=== PATIENT | male | born 1985 | race Caucasian/White ===

== ENCOUNTER 2020-03-17 11:49 | Day surgery (SDC) | payer OTHER ==
[2020-03-17] MEDS ORDERED: ceFAZolin 2 GM/50 ML 2 GM/50 ML BAG IV ONE (12:11)
[2020-03-17] MEDS ORDERED: LACTATED RINGERS 1,000 ML IV ONE ×2 (12:15→14:39)
[2020-03-17] MEDS ORDERED: EPINEPHrine 1 MG/ML AMP ONE (12:40)
[2020-03-17] MEDS ORDERED: BUPIVACAINE 0.25% PF 30 ML VIAL ONE (12:41)
[2020-03-17] MEDS ORDERED: LIDOCAINE-MPF 2% 5 ML VIAL ONE (12:42)
[2020-03-17] MEDS ORDERED: MIDAZOLAM 2 MG/2 ML VIAL ONE (12:42)
[2020-03-17] MEDS ORDERED: PROPOFOL 200 MG/20 ML VIAL IVP ONE (12:42)
[2020-03-17] MEDS ORDERED: BUPIVACAINE 0.5%-EPI 1:200000 PF 30 ML VIAL ONE (12:45)
[2020-03-17] MEDS ORDERED: fentaNYL 100 MCG/2 ML VIAL ONE ×3 (13:27→14:35)
[2020-03-17] MEDS ORDERED: ONDANSETRON 4 MG/2 ML VIAL ONE (13:27)
[2020-03-17] MEDS ORDERED: DEXAMETHASONE 4 MG/ML VIAL ONE (13:27)
[2020-03-17] MEDS ORDERED: BUPIVACAINE 0.25% PF 30 ML VIAL SUBQ ONE (13:42)
[2020-03-17] MEDS ORDERED: EPINEPHrine 1 MG/ML AMP IR ONE (13:43)
[2020-03-17] MEDS ORDERED: oxyCODONE 5 MG TABLET PO PRN (14:45)
[2020-03-17] MEDS ORDERED: ONDANSETRON 4 MG/2 ML VIAL IVP PRN ×2 (14:45→14:48)
[2020-03-17] MEDS ORDERED: METOCLOPRAMIDE 10 MG/2 ML VIAL IVP PRN (14:48)
[2020-03-17] MEDS ORDERED: NALOXONE 0.4 MG/ML VIAL IVP PRN (14:48)
[2020-03-17] MEDS ORDERED: MORPHINE 2 MG/ML CARPUJECT IVP PRN (14:48)
[2020-03-17] MEDS ORDERED: HYDROmorphone 0.5 MG/0.5 ML SYRINGE IVP PRN (14:48)
[2020-03-17] MEDS ORDERED: ATROPINE ABBOJECT 1 MG/10 ML SYRINGE IVP PRN (14:48)
[2020-03-17] MEDS ORDERED: fentaNYL 100 MCG/2 ML VIAL IVP PRN (14:48)
[2020-03-17] MEDS ORDERED: ePHEDrine 50 MG/ML VIAL IVP PRN (14:48)
--- NOTE | 2020-03-17 14:51 | OPERATIVE REPORT ---
Operative Report - Other Other Information/Narrative: Date of Surgery: 17 March 2020 Pre-Op Diagnosis: Right knee lateral meniscus tear. Partial ACL tear. Procedure: Right knee arthroscopic lateral meniscus debridement and diagnostic arthroscopy Postop Diagnosis: Same Primary Surgeon: Hakeem Rm Secondary Surgeon: None Complications: None EBL: 5 cc Indication For Surgery: 35-year-old male sustained an injury to his knee while he was wrestling with a friend many months ago. He was scheduled to start p hysical therapy but did not do so because of the pandemic. He spent about 6 months not using the leg much. I got him into rehab a few months ago and his knee started to feel much better. 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 We discussed surgical management of the meniscus as well as a possible ACL reconstruction. He is not a dynamic athlete but he does feel some giving way and pain in day-to-day activities. We discussed that this painful give way could be secondary to his meniscus or his ACL. I suggested that we perform the diagnostic arthroscopy and assess whether a portion of the ACL still adequately attached to the lateral wall and if it was then we would forego the ACL reconstruction at this time and only perform the meniscus debridement. This would give him time to rehab the knee completely and fully tested to see if he needs an ACL reconstruction. The risks, benefits, and alternatives were disc ussed. Risks include pain, bleeding, infection, damage to nearby structures and cartilage, lack of symptom relief, need for further surgery, DVT, PE, stroke, and . Written consent was obtained. Examination Under Anesthesia: ROM equal to the contralateral side. Stable dial at 30 & 90 degrees. Stable to varus and valgus stressing at 0 & 30 degrees. 2A Jose, same as the other side. Mild glide on Pivot shift. No mechanical sensation Arthroscopic Findings: Loose bodies -none Synovium -normal Patella cartilage -normal Trochlear cartilage -normal Medial femoral condyle cartilage -normal Medial tibial plateau cartilage -normal Medial meniscus -normal Anterior cruciate ligament -partial tearing of the ligament off the lateral wall the femur but some fibers remained intact. The torn fibers scarred to the PCL. On arthroscopic Jose the ACL tightened and stopped translation. Posterior cruciate ligament -normal Lateral femoral condyle cartilage -normal Lateral tibial plateau cartilage -normal Lateral meniscus -large radial tear comprising nearly the complete lateral meniscus body. It had complexity and was unrepairable. It was displaced. The unstable portions of the meniscus were resected with a biters and a shaver. At the level of the body there was only a small amount of meniscus remaining. Procedure in Detail: The patient was met in the pre-operative hold area on the day of the procedure. The operative extremity was signed and questions were answered. The patient was brought to the operating room and a general anesthetic was administered. Supine position was used and bony prominences were padded. An examination under anesthesia was performed. Standard prepping and draping was performed. A time out confirmed patient identification, laterality, procedure, allergies, antibiotics, and images. An Esmarch was used to exsanguinate the limb and the tourniquet was elevated to 250 mmHg. A standard diagnostic arthroscopy of the knee was performed through anterolateral and anteromedial portal sites. The anteromedial portal was created under direct visualization after localizing with a spinal needle. The findings can be found above. I then proceeded to use a biter and shaver to debride all unstable portions of the lateral meniscus. This included a portion of the body a large section of the anterior horn and a small section of the posterior horn. At the level of the body there was only a small amount of meniscus rim remaining. I then very closely assess the ACL using a probe. The ACL on first look was completely normal but as I probed it I could see that a portion of the ACL had torn from the femur. I performed an arthroscopic Jose and found the fibers to tighten. There was still approximately 50% of the tissue remaining on the wall. Based on this information and secondary to the fact that he had a painful unstable meniscus tear that was treated I decided to let him have a trial of life and test his knee to determine whether he needs an ACL reconstruction to function fully. Final images were taken and all arthroscopic fluid and instruments were removed from the knee. The incisions were closed with buried monocryl sutures. Steri strips were applied. A sterile dressing and compression stocking was placed. The patient was awakened and transferred to recovery in stable condition.
[2020-03-17] MEDS ORDERED: LACTATED RINGERS 1,000 ML IV SCH (15:00)
--- NOTE | 2020-03-17 15:06 | ANESTHESIA ---
Pre-Anesthesia VS, & Labs - Diagnosis right acl and meniscus tears - Procedure right knee arthroscopy, acl repair Vital Signs: Temp Pulse Resp BP Pulse Ox 36.4 C L 100 16 134/77 H 96 03/17/20 14:57 03/17/20 14:57 03/17/20 14:57 03/17/20 14:57 03/17/20 14:57 Height: 5 ft 8 in Weight (kg): 113.4 kg Body Mass Index: 38.0 BMI Classification: Obese - NPO >8 hours - Lab Results Lab results reviewed: Yes Home Medications and Allergies Home Medications: Ambulatory Orders No Known Home Medications 02/06/20 Active Medications Ondansetron HCl (Ondansetron 4 Mg/2 Ml Vial) 4 mg IVP Q6HR PRN PRN Reason: Nausea / Vomiting Oxycodone HCl (Oxycodone 5 Mg Tablet) 5 mg PO Q4HR PRN PRN Reason: PAIN No Known Home Medications 02/06/20 Allergies/Adverse Reactions: Allergies Allergy/AdvReac Type Severity Reaction Status Date / Time No Known Drug Allergies Allergy Verified 02/06/20 12:11 Anes History & Medical History - Anesthetic History Anesthesia Complications: reports: No previous complications Family history of Anesthesia Complications: Denies Family history of Malignant Hyperthermia: Denies - Medical History Cardiovascular: reports: None Pulmonary: reports: None Gastrointestinal: reports: None Urinary: reports: None Musculoskeletal: reports: Other Endocrine/Autoimmune: reports: None Skin: reports: None - Surgical History Eyes Ears Nose Throat (EENT): Tonsil/Adenoidectomy Exam General: Alert, Oriented x3, Cooperative, No acute distress Dental: WNL Mouth Openin Fingerbreadth Neck Mobility: Normal Mallampati classification: II Thyromental Distance: 4-6 cm Respiratory: Lungs clear, Normal breath sounds, No respiratory distress, No accessory muscle use Cardiovascular: Regular rate, Normal S1, Normal S2, No murmurs Plan Anesthesia Type: General Consent for Procedure(s) Verified and Reviewed: Yes Code Status: Attempt Resuscitation ASA classification: 3-Severe systemic disease Is this case an emergency?: No
--- NOTE | 2020-03-17 15:07 | ANESTHESIA POST OP EVALUATION ---
Anesthesia Post Eval - Post Anesthesia Eval Vitals: Last Vital Signs Temp 36.4 C L 03/17/20 14:57 Pulse 100 03/17/20 14:57 Resp 16 03/17/20 14:57 BP 134/77 H 03/17/20 14:57 Pulse Ox 96 03/17/20 14:57 CV Function Including HR & BP: positive: Stable Pain Control: positive: Satisfactory Nausea & Vomiting: positive: Negative Mental Status: positive: Baseline Respiratory Status: Airway Patent Hydration Status: Satisfactory Anesthesia Complications: positive: None
[2020-03-17 15:08] VITALS: BP 145/83
== END 2020-03-17 11:50 | disposition home or self-care (01) ==
LOC: SDS 11:49
PROVIDERS: ATTEND Orthopaedic Surgery
DX: M23.241 Derangement of anterior horn of lateral meniscus due to old tear or injury, right knee (principal); M23.251 Derangement of posterior horn of lateral meniscus due to old tear or injury, right knee; S83.511A Sprain of anterior cruciate ligament of right knee, initial encounter; X50.1XXA Overexertion from prolonged static or awkward postures, initial encounter; Y93.72 Activity, wrestling; E66.9 Obesity, unspecified; Z68.38 Body mass index [BMI] 38.0-38.9, adult
CPT/HCPCS: 29881; J0690; J7120

== ENCOUNTER 2022-02-04 12:55 | Outpatient (CLI) | payer OTHER ==
[2022-02-04 13:50] VITALS: BP 170/110
--- NOTE | 2022-02-04 13:50 | SLEEP CARE CONSULTATION ---
Information from patient questionnaire entered by Meaghan Gillis. I have reviewed and concur with the information entered by Meaghan Gillis. This document represents the service I personally performed and the decisions made by me, Ivon Ibarra ARNP. History of Present Illness Service Date and Time: 02/04/2022 1255 Reason for Visit: New patient Chief Complaint: reports: Unrefreshed sleep, Snoring, Fatigue Date of Onset: 5+YRS Usual bedtime: 10PM Time it takes to fall asleep: 15-20MIN Snores at night: Yes Observed to quit breathing while asleep: Yes Sleeps alone due to snoring: Yes Number of times waking at night: 2-3 Reasons for waking at night: reports: Choking, Gasping for air, Other (UNKNOWN REASONS) Toss, Turn, or Twitch while sleeping: Yes Recalls having dreams: Yes Usually gets out of bed at: 0500; weekends 0530 Feels refreshed in the morning: No Morning headache: No Sleepy or fatigued during the day: Yes Ever fallen asleep while driving: No Takes day naps: No Dreams during day naps: No Prior sleep studies: No Additional HPI information: I had the pleasure of seeing IVAN YOUNG today regarding the possibility of him having a sleep disorder. His current complaints are unrefreshed sleep, snoring and fatigue. He has trouble sleeping, can't sleep more than six hours. He has to sleep separate because his snore is getting worse. His has noted pauses in breathing. He has woke up with uvula swollen and feels like he is choking. He does not feel refreshed in the morning in the last 3 years. He will use caffeine to help him get through his days. He has had his tonsils and adenoids removed when he was 10 years old. - Parasomnia Symptoms Ever been unable to move upon waking from sleep: No Walks in sleep: No Talks in sleep: Yes Ever acted out dreams in sleep: No Ever felt weak in the knees when startled or emotional: No Bothered by creepy, crawly, restless sensations in legs: No Problems with memory or concentration: No Subjective Initial [place] Sleepiness Scale score: 4 (01/21/22) Past Medical History Past Medical History: reports: Other (has had high blood pressure but has never been treated) Social History The patient's occupation is a ACTIVE. Patient is Single and lives in [place]. Have you smoked in the past 12 months: No Cigarettes per day (20/pack): 2 Years of smokin Quit date: 2017 Smoking Pack Years: 0.1 Alcohol use: Yes Alcohol amount and frequency: 1 BEVERAGE A NIGHT OR EVERY OTHER NIGHT Caffeine use: Yes Caffeine amount and frequency: 5 CANS EVERY DAY Family History Family history of sleep disordered breathing: Yes Family Hx Sleep Apnea: Father: Snoring, Sleep apnea - Treated, Sibling: Snoring, Sleep apnea - Treated, Grandparent: Snoring Allergies and Home Medications Known drug allergies: No Drug allergies reviewed: Yes (NKDA) Home medication list reviewed: Yes Allergy and home medication list: Medications: Fish oil B super complex D3 vitamin Review of Systems Weight gain over past 5 years: 30 Cardiovascular: reports: high blood pressure, leg or foot swelling Respiratory: reports: wheeze Gastrointestinal: reports: heartburn Neurological: denies: headaches Psychiatric: denies: anxiety, depression, mood disorder Ear/Nose/Throat: reports: tonsillectomy, wisdom teeth removed Endocrine: denies: thyroid disease Immunologic: reports: allergies to food or environment (beer, bananas, kiwi, dorcas) Physical Exam Vital signs obtained and entered by: MEAGHAN Ravi MA Blood Pressure: 170/110 (LEFT ARM) Cuff size: regular Heart Rate: 97 O2 Saturation: 95 Height: 5 ft 8 in Weight: 265 lb 12.8 oz Body Mass Index: 40.4 BMI Classification: Morbidly Obese Neck circumference: 20.5 Mouth and throat: narrow oropharynx Soft palate: long Hard palate: normal Uvula: normal Uvula visualization: 25% Mallampati Class III Tongue: enlarged in size with teeth mckeon on lateral edges Tonsils: absent bilaterally Neck: normal w/o lymphadenopathy or thyromegaly Heart: regular rate and rhythm Lungs: clear bilaterally Impression and Plan 1. Suspected Obstructive Sleep Apnea-Hypopnea Syndrome, as suggested by a history of loud and irregular snoring, observed cessation of breath while asleep, gasping or choking in sleep, frequent awakening during the night and unrefreshed sleep. Narrow oropharynx and obesity are common predisposing factors for obstructive sleep apnea-hypopnea syndrome. I recommend proceeding to polysomnography to confirm the diagnosis and to assess severity. If the patient has significant sleep disordered breathing, a manual CPAP titration study will also be performed to find the optimal treatment pressure. I informed the patient of what the sleep studies involve and after some discussion, obtained agreement to proceed. The pathophysiology of obstructive sleep apnea-hypopnea syndrome was discussed with the patient and health risks of cardiovascular and cerebrovascular disease if not treated. Risks of drowsy driving discussed in detail and patient advised to avoid long distance driving and to lime puller at the first sign of drowsiness. Patient agreed to plan. 2. Elevated blood pressure reading in office today. 170/110 measured at start of visit. He states his blood pressure has been running high, especially when in doctor's office. He plans on following up with his PCM to discuss his blood pressure. He denied chest pain, headaches, shortness of breath or dizziness today. * Schedule polysomnography * Avoid long distance driving or driving when feeling sleepy. * Avoid alcohol, sedative and muscle relaxant around bedtime. * Attempt to lose weight. * Review instructions provided by trained office staff on how to prepare for the sleep study. * Return for follow-up after sleep study completed. Counseling Topics: Weight loss health impact Visit Type: In Office Time Spent with Patient (minutes): 31 Provider Statement: I spent 100% of the Face to Face Visit with the patient with greater than 50% spent counseling the patient and coordination of care.
== END 2022-02-04 12:56 | disposition home or self-care (01) ==
LOC: SC 12:55
PROVIDERS: ATTEND Nurse Practitioner Family
DX: R06.83 Snoring (principal); G47.8 Other sleep disorders; R06.81 Apnea, not elsewhere classified; R53.83 Other fatigue; R03.0 Elevated blood-pressure reading, without diagnosis of hypertension; E66.01 Morbid (severe) obesity due to excess calories; Z68.41 Body mass index [BMI] 40.0-44.9, adult; Z87.891 Personal history of nicotine dependence
CPT/HCPCS: 99203; 99212

== ENCOUNTER 2022-02-20 19:25 | Outpatient (CLI) | payer OTHER | END 2022-02-20 19:26 | disposition home or self-care (01) | LOC: SC 19:25 | PROVIDERS: ATTEND Nurse Practitioner Family | DX: G47.33 Obstructive sleep apnea (adult) (pediatric) (principal) | CPT/HCPCS: 95810 ==

== ENCOUNTER 2022-03-10 10:10 | Outpatient (CLI) | payer OTHER ==
--- NOTE | 2022-03-10 10:38 | SLEEP CARE CONSULTATION ---
Information from patient questionnaire entered by Meaghan Gillis. I have reviewed and concur with the information entered by Meaghan Gillis. This document represents the service I personally performed and the decisions made by , Ivon Ibarra ARNP. History of Present Illness Service Date and Time: 03/10/2022 1010 Initial [place] Sleepiness Scale score: 4 (01/21/22) Current [place] Sleepiness Scale score: 4 (03/10/22) Additional HPI information: IVAN YOUNG returns for follow up and results of the recently performed polysomnography. I explained the pathophysiology behind obstructive sleep apnea. We then spent quite a bit of time discussing different treatment options. For mild obstructive sleep apnea, surgery and oral appliance are alternatives to nasal CPAP therapy but in moderate or severe cases, nasal CPAP is the most effective and reliable treatment. Because apnea is primarily in supine position, then positional management therapy could be effective. Methods discussed such as positioning with pillows to prevent supine sleep. I reviewed the impact of weight changes on sleep apnea and strongly recommended losing weight. After some discussion, the patient opted to go with the nasal CPAP therapy. Nasal autoCPAP set at 4-15 cmH20 will be ordered with rationale explained. A manual titration study will be ordered if unable to find optimal pressure with office adjustments. I explained how CPAP machine works and what to expect when using the machine. Using CPAP every night in order to get used to it was emphasized. Patient advised to put CPAP mask on before getting into bed so as not to fall asleep without CPAP. To assist acclimation to CPAP use, it could also be used for a short time during day while reading or watching TV. The patient was instructed to call the CPAP supplier to discuss any mechanical problem that may occur. If the mask given is uncomfortable or is difficult to keep on through the night even with adjustment, contact the CPAP supplier as many will replace with another mask style if notified before 30 days. If snoring or perceives is not getting enough air or too much air from the machine, notify this office. Patient counseled not drink alcohol less than 4 hours before bedtime as it can increase snoring and apnea. Patient was cautioned about risks of drowsy driving until sleepiness symptoms resolve. Patient denies drowsy driving. Sleep Study - Results Type of Sleep Study: Polysomnography (COMPLETED 02/20/22) Prior sleep studies: No Polysomnography/Home Sleep Study results: IMPRESSION: The quality of the study is good. The patient had normal sleep efficiency. The sleep architecture was abnormal for sleep fragmentation and reduced amount of time spent in slow wave sleep (N3). Respiratory monitoring showed severe obstructive sleep apnea-hypopnea (AHI = 45.5) associated with frequent arousals, oxyhemoglobin desaturation and moderate hypoxia (gene oxygen saturation of 79% ). The respiratory events occurred more frequently during supine sleep (supine AHI = 100.9; non-supine = 40.79). Snore was loud in intensity. There was no significant periodic leg movement of sleep. Cardiac rhythm was normal sinus rhythm without significant arrhythmia. No abnormal behavior (parasomnia) observed during the night. Allergies and Home Medications Drug allergies reviewed: Yes (NKDA) Home medication list reviewed: Yes (no changes) Review of Systems Review of systems same as previous: Yes (no changes) Physical Exam Vital signs obtained and entered by: MEAGHAN Ravi MA Blood Pressure: 168/108 (LEFT ARM) Cuff size: regular Heart Rate: 94 O2 Saturation: 95 Height: 5 ft 8 in Weight: 267 lb 9.6 oz Body Mass Index: 40.6 BMI Classification: Morbidly Obese Impression and Plan 1. Obstructive Sleep Apnea-Hypopnea Syndrome, severe, with lowest oxygen saturation of 79%. Obviously this is the cause of the patients symptoms of unrefreshed sleep, and excessive daytime sleepiness. As mentioned above, the patient will be started on nasal autoCPAP therapy with pressure set at 4-15 cmH2 O. Compliance guidelines also reviewed. A copy of compliance guidelines will be given for reference at check out. Because the apnea is more severe supine, I instructed to avoid sleeping supine using pillow positioning until able to start CPAP use. 2. Hypoxemia, moderate, with a gene oxygen saturation of 79% and 12.6 minutes spent under 90%. His baseline oxygen saturation was normal with an average oxygen saturation of 93%. 3. Obesity, unspecified. Currently patients BMI is 40.6. Obesity increases the risk of apnea, CPAP pressure requirements and overall health risks especially cardiovascular and diabetes. Thus patient is advised to lose weight. * Nasal auto CPAP therapy, pressure at 4-15 cm H2O. * Attempt to lose weight. * Avoid alcohol consumption near bedtime. * Avoid supine sleep until using CPAP. * The patient is again cautioned about driving until sleepiness completely resolves. * Return one month after CPAP obtained. I will assess response to therapy and c ompliance at that time. Counseling Topics: Sleeping position, Weight loss health impact Visit Type: In Office Time Spent with Patient (minutes): 20 Provider Statement: I spent 100% of the Face to Face Visit with the patient with greater than 50% spent counseling the patient and coordination of care.
[2022-03-10 10:40] VITALS: BP 168/108
== END 2022-03-10 10:11 | disposition home or self-care (01) ==
LOC: SC 10:10
PROVIDERS: ATTEND Nurse Practitioner Family
DX: G47.33 Obstructive sleep apnea (adult) (pediatric) (principal); E66.01 Morbid (severe) obesity due to excess calories; Z68.41 Body mass index [BMI] 40.0-44.9, adult; R09.02 Hypoxemia
CPT/HCPCS: 99212; 99213